=== PATIENT | female | born 1945 | race African-American/Black ===

== ENCOUNTER 2018-04-17 15:34 | Emergency (ER) | payer OTHER, MEDICARE ==
--- NOTE | 2018-04-17 18:00 | ED GENERAL ADULT ---
History of Present Illness General Chief Complaint: Eye Problems Stated Complaint: SENT IN BY WALK IN FOR VISION LOSS Source: patient, family Exam Limitations: no limitations Vital Signs & Intake/Output Vital Signs & Intake/Output Vital Signs Date Time Temp Pulse Resp B/P B/P Pulse O2 O2 Flow FiO2 Mean Ox Delivery Rate 04/17 2011 98.1 84 16 119/61 100 Room Air / 1756 98.0 81 18 122/69 99 Room Air 04/17 1711 Room Air 04/17 1543 98.0 79 18 124/71 98 Room Air Allergies Coded Allergies: acetaminophen (From VICODIN) (Intermediate, ITCHING 04/17/18) aspirin (From PERCODAN) (Intermediate, ITCHING 04/17/18) hydrocodone (From VICODIN) (Intermediate, ITCHING 04/17/18) oxycodone (From PERCODAN) (Intermediate, ITCHING 04/17/18) Triage Note: 72F SIB WALK IN DUE TO LEFT EYE VISION LOSS CAUSED BY BEING STRUCK IN THE EYE BY A BROOM LAST NIGHT. INITIALLY SAW BLACK STREAKS AND NOW TODAY ONLY SEES BLURRED LIGHT. PUPILS EQUAL AND REACTIVE. DENIES HEADACHE, NAUSEA, VOMITING. HX DIABETES. ACCUCHECK 183. SEES MY EYE DOCTOR IN [place] Triage Nurses Notes Reviewed? yes Onset: Gradual Duration: hour(s): Timing: single episode today Injury Environment: home Severity: moderate No Modifying Factors: none : No HPI: This is a 72-year-old female with history of hypertension, hyperlipidemia, congestive heart failure, diabetes who presents the emergency department with loss of vision in her left eye. Patient states she was struck in the eye with a broom handle yesterday by accident. She had mild pain after the incident and noticed that she had small decrease in her vision. Gradually over the last 24 hours she has had worsening of her vision and upon arrival to the emergency department she can see only light and dark. She has normal vision in her right eye. She has no nausea or vomiting. She has no headache or dizziness. (William HATFIELD,Live) Past History Travel History Traveled to [place] past 21 day No Medical History Any Pertinent Medical History? see below for history Cardiovascular: CHF, hypertension, hyperlipidemia Respiratory: COPD Musculoskeletal: gout Psychiatric: depression Endocrine: diabetes, hypothyroidism Cancer(s): BREAST CANCER Surgical History Surgical History: non-contributory Psychosocial History What is your primary language [place] Tobacco Use: Never used Family History Hx Contributory? No (Live Thomas MD) Review of Systems Review of Systems Constitutional: Reports: no symptoms. EENTM: Reports: blurred vision, visual changes. Denies: eye pain, eye drainage, eye tearing. Respiratory: Reports: no symptoms. Cardiovascular: Reports: no symptoms. GI: Reports: no symptoms. Genitourinary: Reports: no symptoms. Musculoskeletal: Reports: no symptoms. Skin: Reports: no symptoms. Neurological/Psychological: Reports: no symptoms. Hematologic/Endocrine: Reports: no symptoms. (Live Thomas MD) Physical Exam Physical Exam General Appearance: well developed/nourished, no apparent distress, alert, awake Head: atraumatic, normal appearance Eyes: Bilateral: normal appearance, PERRL, EOMI. Ears, Nose, Throat: normal pharynx, normal ENT inspection Neck: normal inspection Respiratory: normal breath sounds, chest non-tender, lungs clear Cardiovascular: regular rate/rhythm Gastrointestinal: normal bowel sounds, soft, non-tender Rectal: deferred Back: normal inspection, normal range of motion Extremities: normal inspection, no edema Neurologic/Psych: no motor/sensory deficits, awake, alert, oriented x 3, normal gait, normal mood/affect Comments: Vision if grossly abnormal to the left eye; does not blink to threat; can recognize light and dark. Unremarkable slit-lamp exam, no hyphema, Patti, extraocular muscles intact, intraocular pressure is measured at 16, no obvious retinal detachment on point of care ultrasound Core Measures ACS in differential dx? Yes CVA/TIA Diagnosis: No Sepsis Present: No Sepsis Focused Exam Completed? No (Live Thomas MD) Progress Differential Diagnoses I considered the following diagnoses in my evaluation of the patient: Retinal detachment, glaucoma, CVA, central retinal artery occlusion, central venous artery occlusion, the retrobulbar hematoma, traumatic iritis. Low suspicion for corneal abrasion. Plan of Care: Orders Procedure Date/time Status EKG 04/17 1904 Active Initial ED EKG: NSR Comments: Slit-lamp exam, intraocular pressure evaluation, bedside ultrasound for retinal detachment, are all within normal limits. CAT scan is read as unremarkable essentially. See below EXAMINATION: CT HEAD AND CT ORBITS. CLINICAL INFORMATION: Vision loss. Presumed tunneled attachment. COMPARISON: None TECHNIQUE: 5 mm thin axial images of brain were obtained. Subsequently 2.5 mm thin axial and reformatted 1 mm thin coronal and sagittal images of the orbits were obtained. DLP 858. FINDINGS: BRAIN: There is no acute intra-axial, extra-axial bleed, masses or midline shift. There is no acute infarct in evolution. The lateral ventricles are symmetrical in size and configuration without enlargement. Bone windows reveal no calvarial abnormality. There is mild mucoperiosteal thickening left maxillary and right middle ethmoid sinus. Rest of the paranasal sinuses are well-aerated. ORBITS: There is normal symmetry of bilateral optic globes, optic nerves and intraorbital muscles and muscles. No intraconal an extraconal mass or abnormal enhancement seen. The lenses are symmetrical and normal. No soft tissue swelling. Atherosclerotic calcification of internal carotid arteries are noted bilaterally. IMPRESSION: No acute intracranial process seen. Especially there is no infarct in the occipital lobe. Unremarkable unenhanced CT orbits. Mild mucoperiosteal thickening left maxillary and right middle ethmoid sinuses from chronic inflammatory process. Case discussed with Dr. Feliciano at [facility]. She agrees that patient should be evaluated urgently by ophthalmology. Transferred to [place] is arranged through [facility] but patient refuses to be transferred via ambulance. She opts to sign out AMA and be driven by private vehicle to the [facility]. Sign out given to the ER attending Dr. Caceres. Images sent via [employer] [facility]. Patient understands the risks and benefits of signing out AGAINST MEDICAL ADVICE , has capacity. (Live Thomas MD) Departure Departure Disposition: LEFT AGAINST MEDICAL ADVICE Condition: Stable Clinical Impression Primary Impression: Visual disturbance Secondary Impressions: Blunt trauma, left eye Referrals: Liane Ramirez DO (PCP/Family) Departure Forms: Customer Survey General Discharge Information (Live Thomas MD) Resident Co-Sign Statement Statement: ED Attending supervision documentation- I saw and evaluated the patient. I have also reviewed all the pertinent lab results and diagnostic results. I agree with the findings and the plan of care as documented in the Resident's documentation. x I have reviewed the ED Record and agree with the Resident's documentation. [] Additions or exceptions (if any) to the Resident's note and plan are summarized below: [] (Tyesha HATFIELD,Robinson) Critical Care Note Critical Care Note Critical Care Time: non-applicable (Live Thomas MD)
--- NOTE | 2018-04-17 18:46 | CT SCAN REPORT ---
EXAMINATION: CT HEAD AND CT ORBITS. CLINICAL INFORMATION: Vision loss. Presumed tunneled attachment. COMPARISON: None TECHNIQUE: 5 mm thin axial images of brain were obtained. Subsequently 2.5 mm thin axial and reformatted 1 mm thin coronal and sagittal images of the orbits were obtained. DLP 858. FINDINGS: BRAIN: There is no acute intra-axial, extra-axial bleed, masses or midline shift. There is no acute infarct in evolution. The lateral ventricles are symmetrical in size and configuration without enlargement. Bone windows reveal no calvarial abnormality. There is mild mucoperiosteal thickening left maxillary and right middle ethmoid sinus. Rest of the paranasal sinuses are well-aerated. ORBITS: There is normal symmetry of bilateral optic globes, optic nerves and intraorbital muscles and muscles. No intraconal an extraconal mass or abnormal enhancement seen. The lenses are symmetrical and normal. No soft tissue swelling. Atherosclerotic calcification of internal carotid arteries are noted bilaterally. IMPRESSION: No acute intracranial process seen. Especially there is no infarct in the occipital lobe. Unremarkable unenhanced CT orbits. Mild mucoperiosteal thickening left maxillary and right middle ethmoid sinuses from chronic inflammatory process.
[2018-04-17 20:11] VITALS: BP 119/61
== END 2018-04-17 20:15 | disposition left against medical advice (07) ==
LOC: ERH 15:34
DX: H53.9 Unspecified visual disturbance (principal); W22.8XXA Striking against or struck by other objects, initial encounter; Y92.009 Unspecified place in unspecified non-institutional (private) residence as the place of occurrence of the external cause; Y93.E9 Activity, other interior property and clothing maintenance
CPT/HCPCS: 93005; 93010